=== PATIENT | female | born 1950 | race Caucasian/White ===

== ENCOUNTER 2017-09-21 13:53 | Emergency (ER) | payer OTHER, BC ==
[~2017-09-21] VITALS: Ht 162.6 cm; Wt 81.6 kg
== END 2017-09-22 14:43 | disposition home or self-care (01) ==
LOC: ER 13:53
DX: K63.2 Fistula of intestine (principal); B96.20 Unspecified Escherichia coli [E. coli] as the cause of diseases classified elsewhere; B95.2 Enterococcus as the cause of diseases classified elsewhere; B96.3 Hemophilus influenzae [H. influenzae] as the cause of diseases classified elsewhere